=== PATIENT | male | born 1990 | race Caucasian/White ===

== ENCOUNTER 2017-10-24 11:01 | Outpatient (CLI) | payer OTHER ==
--- NOTE | 2017-10-24 12:37 | RAD ---
SCOLIOSIS STUDY: History: 27-year-old male with history of scoliosis. FINDINGS: There is approximately 13 degrees of dextroscoliosis of the upper lumbar lower thoracic vertebral col umn and 13 degrees of levoscoliosis of the upper thoracic vertebral column. IMPRESSION: Scoliosis as above. POS: OFF
== END 2017-10-24 11:02 | disposition home or self-care (01) ==
LOC: SCSRAD 11:01
PROVIDERS: ATTEND Family Medicine
DX: Z87.39 Personal history of other diseases of the musculoskeletal system and connective tissue (principal); M41.9 Scoliosis, unspecified
CPT/HCPCS: 72081